=== PATIENT | female | born 1965 | race Caucasian/White ===

== ENCOUNTER → 2016-12-10 | Outpatient (CLI) | payer BC, OTHER, SELFPAY ==
[~2016-12-10] VITALS: Ht 157.5 cm; Wt 58.1 kg
[~2016-12-10] MED LIST: ESTR62CR PV; FOLI1TAB2 PO; LEVO100T5 PO; LIDOCAINE 2% INJ 100 MG/5 ML SDV (FOR ANES.) As Ordered ONE; METH2.5TA PO; NS 1,000 ML IV SCH; PAXI20TA3 PO; PRED5TA PO; PROPOFOL 200 MG/20 ML VIAL As Ordered ONE
--- NOTE | 2016-12-10 11:22 | ROOR ---
Patient Name: Ana Munguia Procedure Date: 12/10/2016 11:05 AM Date of : 1965 Age: 51 Room: [facility] Gender: Female Note Status: Finalized Procedure: Upper GI endoscopy Indications: Dysphagia, Nausea Providers: Mathew Blackburn Jr, MD Referring MD: Tatyana HOANG DO Requesting Provider: Medicines: Propofol per Anesthesia Complications: No immediate complications. Procedure: Pre-Anesthesia Assessment: - Prior to the procedure, a History and Physical was performed, and patient medications and allergies were reviewed. The patient is competent. The risks and benefits of the procedure and the sedation options and risks were discussed with the patient. All questions were answered and informed consent was obtained. Patient identification and proposed procedure were verified by the physician and the nurse in the pre-procedure area and in the procedure room. Mental Status Examination: alert and oriented. Airway Examination: normal oropharyngeal airway and neck mobility. Respiratory Examination: clear to auscultation. CV Examination: normal. ASA Grade Assessment: II - A patient with mild systemic disease. After reviewing the risks and benefits, the patient was deemed in satisfactory condition to undergo the procedure. The anesthesia plan was to use moderate sedation / analgesia (conscious sedation). Immediately prior to administration of medications, the patient was re-assessed for adequacy to receive sedatives. The heart rate, respiratory rate, oxygen saturations, blood pressure, adequacy of pulmonary ventilation, and response to care were monitored throughout the procedure. The physical status of the patient was re-assessed after the procedure. The Endoscope was introduced through the mouth, and advanced to the second part of duodenum. The upper GI endoscopy was accomplished without difficulty. The patient tolerated the procedure well. Findings: The upper third of the esophagus, middle third of the esophagus and lower third of the esophagus were normal. Non-severe esophagitis was found at the gastroesophageal junction. A small hiatal hernia was present. The cardia, gastric fundus, gastric body, prepyloric region of the stomach and pylorus were normal. Localized moderate inflammation characterized by congestion (edema), erythema, friability and granularity was found in the gastric antrum. Biopsies were taken with a cold forceps for histology. The duodenal bulb, first portion of the duodenum and second portion of the duodenum were normal. Impression: - Normal upper third of esophagus, middle third of esophagus and lower third of esophagus. - Non-severe reflux esophagitis. - Small hiatal hernia. - Normal cardia, gastric fundus, gastric body, prepyloric region of the stomach and pylorus. - Gastritis. Biopsied. - Normal duodenal bulb, first portion of the duodenum and second portion of the duodenum. Recommendation: - Discharge patient to home (ambulatory). - Return to my office in 2 weeks. Mathew Blackburn MD Mathew Blackburn Jr, MD 12/10/2016 11:21:57 AM This report has been signed electronically. Number of Addenda: 0 Note Initiated On: 12/10/2016 11:05 AM Estimated Blood Loss: Estimated blood loss: none.
--- NOTE | 2016-12-10 11:45 | ROOR ---
Patient Name: Ana Munguia Procedure Date: 12/10/2016 11:06 AM Date of : 1965 Age: 51 Room: [facility] Gender: Female Note Status: Finalized Procedure: Colonoscopy Indications: Screening for colorectal malignant neoplasm Providers: Mathew Blackburn Jr, MD Referring MD: Tatyana HOANG DO Requestkathy Provider: Medicines: Propofol per Anesthesia Complications: No immediate complications. Procedure: Pre-Anesthesia Assessment: - Prior to the procedure, a History and Physical was performed, and patient medications and allergies were reviewed. The patient is competent. The risks and benefits of the procedure and the sedation options and risks were discussed with the patient. All questions were answered and informed consent was obtained. Patient identification and proposed procedure were verified by the physician and the nurse in the pre-procedure area and in the procedure room. Mental Status Examination: alert and oriented. Airway Examination: normal oropharyngeal airway and neck mobility. Respiratory Examination: clear to auscultation. CV Examination: normal. ASA Grade Assessment: II - A patient with mild systemic disease. After reviewing the risks and benefits, the patient was deemed in satisfactory condition to undergo the procedure. The anesthesia plan was to use moderate sedation / analgesia (conscious sedation). Immediately prior to administration of medications, the patient was re-assessed for adequacy to receive sedatives. The heart rate, respiratory rate, oxygen saturations, blood pressure, adequacy of pulmonary ventilation, and response to care were monitored throughout the procedure. The physical status of the patient was re-assessed after the procedure. The Colonoscope was introduced through the anus and advanced to the terminal ileum. The patient tolerated the procedure well. The colonoscopy was performed with moderate difficulty due to significant looping. Successful completion of the procedure was aided by changing the patient's position. The quality of the bowel preparation was fair and poor. Findings: The perianal and digital rectal examinations were normal. Pertinent negatives include normal sphincter tone, no palpable rectal lesions and no anal lesion or abnormality was detected. The rectum, sigmoid colon, descending colon, transverse colon, ascending colon and ileocecal valve appeared normal. The sigmoid colon, descending colon, transverse colon and ascending colon revealed moderately excessive looping. Impression: - Preparation of the colon was fair. - Preparation of the colon was poor. - The rectum, sigmoid colon, descending colon, transverse colon, ascending colon and ileocecal valve are normal. - There was significant looping of the colon. - No specimens collected. Recommendation: - Discharge patient to home (ambulatory). - Repeat colonoscopy in 10 years for screening purposes. Mathew Blackburn MD Mathew Blackburn Jr, MD 12/10/2016 11:45:13 AM This report has been signed electronically. Number of Addenda: 0 Note Initiated On: 12/10/2016 11:06 AM Estimated Blood Loss: Estimated blood loss: none.
[2016-12-10 12:25] VITALS: BP 116/63
== END | disposition home or self-care (01) ==
LOC: M OPP 10:14
PROVIDERS: ATTEND Surgery
DX: Z12.11 Encounter for screening for malignant neoplasm of colon (principal); R13.10 Dysphagia, unspecified; R11.0 Nausea; K29.70 Gastritis, unspecified, without bleeding; K44.9 Diaphragmatic hernia without obstruction or gangrene; K21.0 Gastro-esophageal reflux disease with esophagitis; E03.9 Hypothyroidism, unspecified; R12 Heartburn; Z86.718 Personal history of other venous thrombosis and embolism; F41.9 Anxiety disorder, unspecified; F32.9 Major depressive disorder, single episode, unspecified; Z78.0 Asymptomatic menopausal state; I73.00 Raynaud's syndrome without gangrene; M35.9 Systemic involvement of connective tissue, unspecified; Z88.2 Allergy status to sulfonamides; Z88.8 Allergy status to other drugs, medicaments and biological substances; Z79.899 Other long term (current) drug therapy; Z80.9 Family history of malignant neoplasm, unspecified
CPT/HCPCS: 43239; 88305; 99156; 99157; G0121